=== PATIENT | female | born 1995 | race Caucasian/White ===

== ENCOUNTER 2024-05-18 23:54 | Emergency (ER) | payer OTHER, SELFPAY ==
--- NOTE | ~2024-05-18 | XR_ITS ---
EXAMINATION: XR chest 1V portable DATE: 05/19/2024 01:31 INDICATION: Palpitations TECHNIQUE: frontal view of the chest was obtained. COMPARISON: Chest radiograph dated 04/01/2024 FINDINGS: The lungs remain clear with no focal airspace opacities, pulmonary edema, pleural effusion or pneumot horax. The cardiomediastinal silhouette is normal. Surgical clip caudal to several median sternotomy wires. Correlate with surgical history. IMPRESSION: 1. No acute cardiopulmonary disease. Reviewed, dictated and finalized at location A. [employer] WORK[employer]
--- NOTE | 2024-05-18 23:55 | ECG_ITS ---
Test Date: 2024-05-18 23:59:21 Measurements Intervals [place] Rate: 71 P: 36 GA: 164 QRS: -28 QRSD: 124 T: 35 QT: 391 QTc: 426 Interpretive Statements SINUS RHYTHM POSSIBLE LEFT ATRIAL ENLARGEMENT INTRAVENTRICULAR CONDUCTION DELAY LEFT VENTRICULAR HYPERTROPHY WITH ST-T CHANGE CANNOT R/O SEPTAL INFARCT, AGE INDETERMINATE BASELINE WANDER- I, II, III, AVR, AVL, AVF ABNORMAL ECG No previous ECG available for comparison Electronically Signed On 05-19-2024 06:20:29 [employer] PROFESSION[employer] by Zia Oliver D.O.
[2024-05-19] VITALS: BP 156/74; PULSE 76; RESP 18; TEMP 36.2; O2SAT 99
--- NOTE | 2024-05-19 01:31 | PC.NURSE ---
labs have been sent to laboratory at this time.
[2024-05-19 01:34] LABS: Basophils Percent Auto 0.3 % (0.2-1.2); Eosinophils Absolute Auto 0.1 K/mm3 (0-0.3); Hematocrit 35.2 % (37.0-47.0); Immature Granulocyte Absolute 0.04 K/mm3 (0.00-0.031); Immature Granulocyte Percent A 0.4 % (0-0.5); Lymphocytes Absolute Auto 2.19 K/mm3 (0.9-3.2); Lymphocytes Percent Auto 22.6 % (18.3-44.2); Mean Corpuscular HGB Conc 31.3 g/dl (32-36); Mean Corpuscular Hemoglobin 24.7 pg (26-34); Mean Corpuscular Volume 78.9 fl (80-100); Mean Platelet Volume 8.8 fl (7.4-10.4); Monocytes Absolute Auto 0.9 K/mm3 (0.1-0.6); Monocytes Percent Auto 9.7 % (2.6-8.5); Neutrophils Absolute Auto 6.4 K/mm3 (1.3-6.7); Platelet Count Result 307 k/mm3 (150-375); Red Blood Count 4.46 M/mm3 (4.2-5.4); Red Cell Distribution Width 14.7 % (11.5-14.5); White Blood Count 9.7 K/mm3 (4.5-10.0)
[2024-05-19 01:40] LABS: Add Urine Microscopic? YES; Appearance Urine Clear (Clear); Bacteria Urine None Seen /hpf; Bilirubin Urine Negative (Negative); Blood Urine 2+ (Negative); Color Urine Yellow (Yellow); Glucose Urine UA Negative (Negative); Ketones Urine Negative (Negative); Leukocyte Esterase Ur Negative LEU/UL (Negative); Nitrate Urine Negative (Negative); Non Pathogenic Casts 0-2; Protein Urine Negative (Negative); Specific Grav Ur 1.018 (1.001-1.035); Squamous Epithelial Cell Urine None Seen /hpf (Few); Urobilinogen Urine 0.2 mg/dL (<2.0); WBC Urine 0-5 /hpf (0-3)
[2024-05-19 01:44] LABS: Alanine Aminotransferase 17 U/L (6-35); Albumin Level 3.7 g/dL (3.5-5.1); Alkaline Phosphatase 57 U/L (38-126); Anion Gap 7 mmol/L (4-12); Aspartate Amino Transferase 18 U/L (14-36); Bilirubin,Total 0.2 mg/dL (0.2-1.3); Blood Urea Nitrogen 25 mg/dL (7-17); Calcium 8.9 mg/dL (8.4-10.2); Carbon Dioxide 27 mmol/L (22-30); Chloride 105 mmol/L (98-107); Estimated CRCL calculation 87 ml/min; Estimated Glomerular Filt Rate > 60; Glucose 87 mg/dL (65-110); Magnesium 2.1 mg/dL (1.6-2.3); Potassium 4.3 mmol/L (3.4-5.0); Sodium 139 mmol/L (137-145)
[2024-05-19 01:46] VITALS: BP 136/71; PULSE 71; RESP 18; O2SAT 100
--- NOTE | 2024-05-19 01:55 | ED.GENADULT ---
HPI - General Adult General Chief complaint: Arrhythmia/Palpitations Stated complaint: palpations Time Seen by Provider: 05/19/24 00:52 History of Present Illness HPI narrative: Patient is a 28-year-old female who presents emergency department with chief complaint of palpitations. Patient reports she has history of aortic stenosis and valvular disease the patient reports that she started feeling as though she is skipping some beats the patient did denies chest pain denies syncope Related Data Allergies Allergy/AdvReac Type Severity Reaction Status Date / Time cefixime Allergy Mild Verified 04/16/24 11:01 erythromycin base Allergy Mild Verified 04/16/24 11:01 AMOXICILLIN TRIHYDRATE Allergy Mild Uncoded 04/16/24 11:01 POTASSIUM CLAVULANATE Allergy Mild Uncoded 04/16/24 11:01 Review of Systems Review of Systems: A 10 system review of systems was completed on the patient and is negative except for what is stated in the HPI. Nursing and ancillary documentation was reviewed. Exam Narrative: GENERAL: Well-appearing, well-nourished, and in no acute distress. HEAD: Normocephalic, atraumatic. EYES: PERRLA and EOMI. ENT: Nares clear, no rhinorrhea or epistaxis. Mucous membranes moist. NECK: Supple. CHEST: Clear to auscultation. No respiratory distress. HEART: Regular rate and rhythm. No murmur heard. Normal peripheral pulses. ABDOMEN: Soft, nontender, nondistended, normal active bowel sounds. EXTREMITIES: Normal range of motion. No edema. SKIN: Warm, dry, no rash. NEURO: No focal deficits. Alert and oriented x3. PSYCH: Normal mood and affect. Course Vital Signs Vital signs: Vital Signs Temperature 36.2 C L 05/19/24 00:00 Pulse Rate 76 05/19/24 00:00 Respiratory Rate 18 05/19/24 00:00 Blood Pressure 156/74 H 05/19/24 00:00 Pulse Oximetry 99 05/19/24 00:00 Oxygen Delivery Room Air 05/19/24 00:00 Temperature 36.2 C L 05/19/24 00:00 Pulse Rate 64 05/19/24 03:18 Respiratory Rate 18 05/19/24 03:18 Blood Pressure 132/70 05/19/24 03:18 Pulse Oximetry 98 05/19/24 03:18 Oxygen Delivery Room Air 05/19/24 00:00 Medical Decision Making [facility] Narrative Medical decision making narrative: Differential diagnosis includes electrolyte abnormality, palpitations, dysrhythmia, EKG showed no acute ischemic changes initial troponin and 3 hour troponin were negative Magnesium was 2.1 potassium was 4.3 The patient was observed in the emergency department on monitors showed no significant dysrhythmia Vital Signs Vital Signs: Vital Signs Temperature 36.2 C L 05/19/24 00:00 Pulse Rate 76 05/19/24 00:00 Respiratory Rate 18 05/19/24 00:00 Blood Pressure 156/74 H 05/19/24 00:00 Pulse Oximetry 99 05/19/24 00:00 Oxygen Delivery Room Air 05/19/24 00:00 Temperature 36.2 C L 05/19/24 00:00 Pulse Rate 64 05/19/24 03:18 Respiratory Rate 18 05/19/24 03:18 Blood Pressure 132/70 05/19/24 03:18 Pulse Oximetry 98 05/19/24 03:18 Oxygen Delivery Room Air 05/19/24 00:00 Lab Data 05/19/24 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 05/19/24 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 Labs: Lab Results 05/19/24 05/19/24 Range/Units 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 03:43 WBC 9.7 (4.5-10.0) K/mm3 RBC 4.46 (4.2-5.4) M/mm3 Hgb 11.0 L (12.0-15.0) g/dL Hct 35.2 L (37.0-47.0) % MCV 78.9 L (80-100) fl MCH 24.7 L (26-34) pg MCHC 31.3 L (32-36) g/dl RDW 14.7 H (11.5-14.5) % Plt Count 307 (150-375) k/mm3 MPV 8.8 (7.4-10.4) fl Immature Gran % (Auto) 0.4 (0-0.5) % Neut % (Auto) 66.0 (45.5-73.1) % Lymph % (Auto) 22.6 (18.3-44.2) % [place] % (Auto) 9.7 H (2.6-8.5) % Eos % (Auto) 1.0 (0-4.4) % Baso % (Auto) 0.3 (0.2-1.2) % Lymph # (Auto) 2.19 (0.9-3.2) K/mm3 [place] # (Auto) 0.9 H (0.1-0.6) K/mm3 Eos # (Auto) 0.1 (0-0.3) K/mm3 Baso # (Auto) 0.0 (0.0-0.1) K/mm3 Abs Immat Gran (auto) 0.04 H (0.00-0.031) K/mm3 Absolute Neuts (auto) 6.4 (1.3-6.7) K/mm3 Absolute Nucleated RBC 0.000 (0.0-0.012) K/mm3 Nucleated RBC % 0.0 (0.0-0.2) % Sodium 139 (137-145) mmol/L Potassium 4.3 (3.4-5.0) mmol/L Chloride 105 (98-107) mmol/L Carbon Dioxide 27 (22-30) mmol/L Anion Gap 7 (4-12) mmol/L BUN 25 H (7-17) mg/dL Creatinine 0.90 (0.7-1.0) mg/dL Estim Creat Clear Calc 87 ml/min Estimated GFR > 60 (59 - ) Glucose 87 (65-110) mg/dL Calcium 8.9 (8.4-10.2) mg/dL Magnesium 2.1 (1.6-2.3) mg/dL Total Bilirubin 0.2 (0.2-1.3) mg/dL AST 18 (14-36) U/L ALT 17 (6-35) U/L Alkaline Phosphatase 57 (38-126) U/L Troponin I 0.014 < 0.012 (0.000-0.034) ng/mL Total Protein 7.0 (6.3-8.2) g/dL Albumin 3.7 (3.5-5.1) g/dL Urine Color Yellow (Yellow) Urine Appearance Clear (Clear) Urine pH 7.0 (5.0-9.0) Ur Specific [place] 1.018 (1.001-1.035) Urine Protein Negative (Negative) mg/dL Urine Glucose (UA) Negative (Negative) mg/dL Urine Ketones Negative (Negative) mg/dL Ur Blood (Man) 2+ H (Negative) Urine Nitrate Negative (Negative) Urine Bilirubin Negative (Negative) Urine Urobilinogen 0.2 (<2.0) mg/dL Leukocyte Esterase Rfl Negative (Negative) MIKEY/UL Urine RBC 3-5 H (0-2) /hpf Urine WBC 0-5 (0-3) /hpf Ur Squamous Epith Cells None seen (Few) /hpf Urine Bacteria None seen /hpf Urine Casts 0-2 Discharge Plan Discharge Clinical Impression: Palpitations Patient Disposition: Home, Self-Care Condition: Stable Instructions: Antibiotic Form, Heart Palpitations (ED) Follow-up/Referrals: Pippa Hernandez MD [Physician] - PHYSICIAN,COFFEE GRINDER [Primary Care Provider] - Time of Disposition: 04:17
[2024-05-19 01:56] LABS: Troponin I 0.014 ng/mL (0.000-0.034)
[2024-05-19 03:18] VITALS: BP 132/70; PULSE 64; RESP 18; O2SAT 98
[2024-05-19 04:10] LABS: Troponin I < 0.012 ng/mL (0.000-0.034)
== END 2024-05-19 04:20 | disposition home or self-care (01) ==
PROVIDERS: Emergency Provider Emergency Medicine
DX: R00.2 Palpitations (principal); I35.0 Nonrheumatic aortic (valve) stenosis; I38 Endocarditis, valve unspecified; R94.31 Abnormal electrocardiogram [ECG] [EKG]; I45.9 Conduction disorder, unspecified; I51.7 Cardiomegaly
CPT/HCPCS: 36415; 71045; 80053; 81001; 83735; 84484; 85025; 93005; 99284